=== PATIENT | male | born 1970 | race Caucasian/White ===

== ENCOUNTER 2023-06-09 19:40 | Emergency (ER) | payer SELFPAY ==
[~2023-06-09] VITALS: Ht 170.2 cm; Wt 90.9 kg
[2023-06-09 19:59] VITALS: BP 125/68; RESP 18; TEMP 98.1; O2SAT 98
[2023-06-09 23:14] VITALS: PULSE 60
[2023-06-10] MEDS ORDERED: MUPI2OIN2 EX (00:57)
[2023-06-10] MEDS ORDERED: IBUP1TAB5 PO (00:57)
[2023-06-10] MEDS ORDERED: AUG875T PO (00:57)
[2023-06-10] MEDS ORDERED: NEOMYCIN-BACITRACIN-POLYM UNITDOSE PKG TOP OINT TOP ONE (01:00)
[2023-06-10] MEDS ORDERED: AMOXICILLIN/CLAVUL 875 MG TAB PO ONE (01:00)
[2023-06-10] MEDS ORDERED: HYDROcodone-ACET 5/325MG TAB PO ONE (01:00)
[2023-06-10] MEDS ORDERED: TETANUS-DIPTH-ACEL PERTUSSIS 0.5ML SYR Tdap IM ONE (01:00)
== END 2023-06-10 01:17 | disposition home or self-care (01) ==
LOC: ER 19:40 → EDBD 19:40 → ER 06-10 01:17
DX: S61.411A Laceration without foreign body of right hand, initial encounter (principal); S61.431A Puncture wound without foreign body of right hand, initial encounter; R55 Syncope and collapse; Z79.1 Long term (current) use of non-steroidal anti-inflammatories (NSAID); Z79.899 Other long term (current) drug therapy; W54.0XXA Bitten by dog, initial encounter; Y93.89 Activity, other specified; Y92.89 Other specified places as the place of occurrence of the external cause; Y99.8 Other external cause status
CPT/HCPCS: 12002; 36415; 70450; 73130; 84484; 90471; 90715; 93005